=== PATIENT | female | born 1960 | race Caucasian/White ===

== ENCOUNTER 2016-11-14 09:35 | Day surgery (SDC) | payer OTHER ==
[~2016-11-14] VITALS: Ht 165.1 cm; Wt 97.5 kg
[~2016-11-14 09:35] MED LIST: DSS100 PO; IBUP-1152 PO; SYN.15T2 PO; TOR10T PO; TYL325 PO; XVIS2550 PO
[2016-11-14] MEDS ORDERED: Propofol 10 mg/mL 20 mL Inj ONE (09:36)
[2016-11-14 10:12] VITALS: BP 162/86; PULSE 58; RESP 14; O2SAT 98
[2016-11-14] MEDS ORDERED: ASPI-973 PO (10:21)
[2016-11-14] MEDS ORDERED: CHOL10008 PO (10:21)
[2016-11-14] MEDS ORDERED: OMEP20CA11 PO (10:21)
[2016-11-14] MEDS ORDERED: METO25TA6 PO (10:21)
[2016-11-14] MEDS ORDERED: Lactated Ringer's 1,000 ML IV ONE (10:27)
[2016-11-14] MEDS ORDERED: Lactated Ringer's 1,000 ML IV SCH (10:47)
[2016-11-14] MEDS ORDERED: Ondansetron 2 mg/mL 2 mL Inj IVPUSH PRN (10:50)
[2016-11-14] MEDS ORDERED: MetoCLOpramide 5 mg/mL 2 mL Inj IVPUSH PRN (10:50)
[2016-11-14 11:13] VITALS: BP 137/81; PULSE 62; RESP 16; O2SAT 97
--- NOTE | 2016-11-14 11:18 | PCM.ENDEGD ---
EGD Date of Service: Nov 14, 2016 Physician Sree Dan MD Pre Procedure Diagnosis: Dysphagia Post Procedure Dx & Findings: Diffuse gastropathy and gastric polyp Procedure Esophagogastroduodenoscopy PROCEDURE IN DETAIL: After proper sedation, Olympus video endoscope was inserted into patient's mouth and esophagus was successfully intubated. Scope introduced esophagus. Esophagus showed normal shiny whitish mucosa consistent with squamous cell component. Z line was intact at 40 cm from the incisors. Scope further advanced to the stomach. The entire stomach appeared reddish edema with normal folds. Biopsies were obtained. There was a 2-3 cm appears to be an inflammatory polypoid structure. This was biopsied. Cardia fundus body antrum pylorus were all visualized. Retroflexion was done. Stomach was easily inflated and deflatable using air. Scope further advanced to the distal duodenum. Duodenum revealed normal villous structures with normal appearing folds without any mass ulcer erosion. Impression Diffuse gastropathy Most likely inflammatory gastric polyp. Recommendation Follow up in GI clinic Presedation Assessment Risks and Benefits Informed consent was obtained from the patient after all risks and benefits including but not limited to drug reaction, infection, pain, bleeding, perforation, as well as alternatives were discussed. Patient monitoring Continuous pulse oximetry, cardiac monitoring, blood pressure monitoring, IV access, and oxygen at 2L per nasal cannula. Complications There were no periprocedural complications identified. Post Procedure Plan Post Procedure Recommendations 1. Restrict activities today. 2. Resume normal activities in the morning. 3. Resume medications. 4. GERD behavioral modification: - Avoid fatty, acidic, spicy, large meals - Do not lie down after meals - Do not eat or drink anything for at least 2 1/2 hours before going to bed at night - Discontinue tobacco and alcohol - Decrease or avoid caffeine - Avoid chocolate and mints - Decrease weight - Avoid aspirin and non steroidal anti-inflammatory agents (NSAID) such as Aleve, Advil, Mobic, Naproxen, Ibuprofen, etc 5. Add proton pump inhibitor. Take 30 minutes before 1st meal of the day. 6. Patient informed of normal post procedure side effects as bloating, drowsiness, blood streaking in the stool 7. If gastric biopsy reveal H.pylori, continue with appropriate treatment 8. If small bowel biopsy reveals celiac, continue with appropriate treatment 9. Please don't hesitate to call me with any questions Sree Dan MD Nov 14, 2016 11:18
--- NOTE | 2016-11-14 11:27 | PCM.HPANE ---
Patient Data Surgeon Admitting Provider: Attending Provider:Sree Dan MD Primary Care Physician:Helen Burr MD Other Provider:[facility] Anesthesia Reason for Visit Dysphagia Ht/WT & BMI Body Mass Index Allergies Coded Allergies: codeine (Verified Allergy, Severe, HIVES,??ANAPHYLAXIS, 03/30/15) oxycodone (Verified Allergy, Severe, HIVES,??ANAPHYLAXIS, 03/30/15) Past Anesthesia History Anesthesia History: Denies:: Abnormal Airway, Anesthesia Reactions, Difficult Intubation, Fam Anesthesia Reaction, Fam Malignant Hypertherm, Malignant Hyperthermia Diabetes History Hx Diabetes?: No MRSA MRSA: No Medications Blood Thinner: Aspirin Last Dose Blood Thinner: Nov 13, 2016 Home Meds Incl Beta Laura: Yes Date Beta Laura Taken: Nov 14, 2016 Time Beta Laura Taken: 0800 Active Scripts IBUPROFEN-Expunged Drug, Do Not Renew! 800 Mg Ryfxry643 Mg PO Q8 #30 TAKE WITH FOOD Prov:Maira Chacko MD 11/24/12 Reported Medications Omeprazole 20 Mg Capsule.dr20 Mg PO BID Ref 0 11/14/16 Cholecalciferol (Vitamin D3) (Vitamin D3)1,000 Unit Tab.chew1,000 Unit PO DAILY 11/14/16 Aspirin 81 Mg Lvzzag01 Mg PO DAILY Ref 0 11/14/16 Metoprolol Tartrate 25 Mg Snhzaz21 Mg PO BID 30 Days Ref 0 11/14/16 Levothyroxine-Expunged Drug, Do Not Renew! (Synthroid-Expunged Drug, Do Not Renew!)150 Mcg Lpzhja722 Mcg PO DAILY 0.15 MG = 150 MCG 11/15/12 Discontinued Scripts Acetaminphen-Expunged Drug, Do Not Renew! 325 Mg Nwkqjx055 Mg PO Q4-6HP #30 Prov:Maira Chacko MD 11/24/12 Hydroxyzine Sari-Expunged Drug, Do Not Renew! (Vistaril-Expunged Drug, Do Not Renew!)25 Mg Tab25 Mg PO Q4-6HP #30 Ref 1 Prov:Maira Chacko MD 11/24/12 Ketorolac-Expunged Drug, Do Not Renew! 10 Mg Byxtje25 Mg PO Q4-6HP #30 Ref 0 not to exceed 5 days Prov:Maira Chacko MD 11/24/12 Docusate Sod-Expunged Drug, Do Not Renew! 100 Mg Xosojqp855 Mg PO BID #60 Ref 3 Prov:Maira Chacko MD 11/24/12 History History of ENT Problems?: Yes HEENT History: Positive for:: Dysphagia Sinus Problem (HX OF SINUSITIS) Denies:: Abnormal Airway Cataracts Difficult Intubation Glaucoma Hearing Problem TMJ Denture Type: None Teeth Condition: Within Normal Limits Hx of Heart Problems?: Yes Cardiovascular History: Positive for:: Atrial Fibrillation Denies:: AICD Abdominal Aortic Aneurism Cardiac Surgery Chest Pain Congestive Heart Failure Coronary Artery Disease Edema Heart Murmur Hypertension Irregular Heartbeat Pacemaker Peripheral Vascular Rheumatic Fever Thrombophlebitis Valvular Heart Disease Hx of Respiratory Problem?: No Respiratory History: Denies:: Asthma COPD Chest Surgery Cough Dyspnea Emphysema Hemoptysis Oxygen Administration Pneumonia Pulmonary Embolism Tuberculosis Use of C-PAP Machine Use of Inhalers / NEBS Hx Neurologic Problems?: No Neurological History: Denies:: Alzheimer's Disease CVA Dementia Dizziness Headaches Multiple Sclerosis Parkinson's Disease Peripheral Neuropathy Seizures TIA Hx of GI Problems?: Yes Gastrointestinal History: Denies:: Cirrhosis Diverticulitis Gall Bladder Disease Gastroesphageal Reflux Gastrointestinal Bleeding Heartburn Hepatitis Hiatal Hernia Liver Disease Rectal Bleeding Hx of Problems?: Yes Genitourinary History: Denies:: HX of Hemodialysis Kidney Stones Urinary Tract Infection HX of Peritoneal Dialysis: No Female Hx: Denies:: Currently Endometriosis Pelvic Inflammatory Problems with Breasts? Skin History: Denies:: History Skin Disorders? Pressure Ulcers Hx Musculoskeletal Problems?: No Musculoskeletal History: Denies:: Back Injury Degenerative Joint Fibromyalgia Joint Replacement Musculoskeletal Trauma Myasthenia Gravis Osteoarthritis Rheumatoid Arthritis Systemic Lupus Hx of Psycho/Social Problems?: No Psycho Social History: Denies:: Anxiety Bipolar Disorder Hx Depression Suicide Attempt Hx Surgeries?: Yes (HYSTO, LAP HEAVEN, TONSIL, BLADDER SLING) Hx Any Other Health Problems?: No Other History: Positive for:: Hospitalization (CARDIAC 2006) Thyroid Disease (hypothyroid) Denies:: Cancer Endocrine Disease History Blood Transfusions: Denies:: Blood Transfusions Hx Diabetes: No Hx Alcohol Use: NoHx Substance Use: No Smoking Status: Unknown if Ever Smoker Have You Smoked inLast 12 mo: No Stop/Bang Treated for Sleep Apnea?: Yes Do You Have a CPAP Machine?: Yes (COMPLIANT WITH NIGHTLY USE) Risk Assessment Category Category 1A: Patient has history of documented sleep apnea, and HAS NOT received any narcotic, sedative or anesthesia administration during this stay. Category 1B: Patient has history of documented sleep apnea, and HAS received any narcotic , sedative or anesthesia administration during this stay Category 2: Patient has SUSPECTED Obstructive Sleep Apnea, and HAS received any narcotic , sedative or anesthesia administration during this stay. Category 3: Patient has SUSPECTED Obstructive Sleep Apnea and HAS NOT received narcotic, sedative or anesthesia administration during this stay. Category 4: Outpatient in Procedural Areas with known sleep apnea or who screen positive for High Risk via the STOP/BANG questionnaire. Exam Exam Vital Signs Vital Signs Date Time Temp Pulse Resp B/P Pulse Ox O2 Delivery O2 Flow Rate FiO2 11/14/16 10:12 36.5 58 14 162/86 98 Room Air General Appearance: Alert, Oriented X3, Cooperative, No Acute Distress HEENT/AIRWAY: MP 2, Neck Movement (FROM), Mouth Opening (3 FBMO) Lungs: Clear to Auscultation, Normal Air Movement Heart: Exam Unremarkable, Regular Rate/Rhythm, No Murmurs/Rubs/Gallops Additional Information h/o A fib, currently in NSR Plan Impression Patient chart reviewed, patient interviewed and anesthestic plan with risks, benefits, and alternatives discussed, and informed consent obtained. NPO per Anesth. Guidelines: Yes ASA Physical Status: ASA3 Severe Disease (A fib) Anesthetic Plan: MAC Bene/Risks/Altern/Consents: Yes HP Complete Prior to Induction: Yes Ulysses Nixon MD Nov 14, 2016 10:25
--- NOTE | 2016-11-14 11:28 | PCM.ANEP1 ---
Post Anesthesia PACU Phase 1 Assessment Vital Signs Vital Signs Date Time Temp Pulse Resp B/P Pulse Ox O2 Delivery O2 Flow Rate FiO2 11/14/16 11:13 62 16 137/81 97 Room Air 11/14/16 10:12 36.5 58 14 162/86 98 Room Air Anesthetic Administered: MAC Level of Alertness: Awake, talking COUGHLIN's with Equal Strength: Yes Pain: Yes Nausea or Vomiting: No CV Function & Hydration Stable: Yes Airway Device: N/A Oxygen Delivery: Room Air Lungs: Clear to Auscultation, Normal Air Movement Dermatome Level: Full Sensation PACU Phase 2 Assessment Complications: No Follow up Care: N/A Patient Instructions Provided: N/A Ulysses Nixon MD Nov 14, 2016 11:28
[2016-11-14 11:36] VITALS: BP 140/84; PULSE 56; RESP 14; O2SAT 98
--- NOTE | 2016-11-18 11:36 | PATH ---
SURGICAL PATHOLOGY Attending Physician:Sree Dan M.D. CASE STATUS: Signed Out PATIENT NAME: ADRIANNE LOERA PID: [id number] : 1960 DATE COLLECTED:11/14/2016 16:12 SPECIMEN: 1: Gastric, Biopsy 2: Gastric, Biopsy CLINICAL HISTORY: DYSPHASIA 1. DIFFUSED GASTRITIS 2. GASTRIC POLYP BX FINAL DIAGNOSIS: 1.DIFFUSE GASTRITIS: GASTRIC ANTRAL MUCOSA WITH INTESTINAL METAPLASIA AND PANCREATIC ACINAR METAPLASIA. Negative for Helicobacter organisms by immunohistochemical stains. Negative for dysplasia and malignancy. 2.GASTRIC POLYP BIOPSY: REACTIVE GASTROPATHY, ANTRAL MUCOSA. Negative for Helicobacter organisms by immunohistochemical stains. Negative for intestinal metaplasia. Negative for dysplasia and malignancy. ICD10 K29.70 K31.89 GROSS DESCRIPTION: 1. Received in formalin, labeled with the patient' s name and "gastric", are two pieces of hudson, soft tissue measuring 0.3 x 0.2 x 0.1 cm to 0.5 x 0.3 x 0.2 cm. Totally submitted in cassette 1A. 2. Received in formalin, labeled with the patient' s name and "gastric polyp", is one piece of hudson, soft tissue measuring 0.6 x 0.2 x 0.1 cm. Totally submitted in cassette 2A. (:[id number]) MICRO DESCRIPTION: 1. and 2. Sections are of gastric mucosa with features as described in the diagnostic field above. Immunohistochemical stains are performed to rule out the presence of Helicobacter organisms. The patient tissue is stained with monoclonal antibody to Helicobacter pylori (SP48). The positive and negative controls stain appropriately. Result:1. The patient tissue shows no Helicobacter staining. 2. The patient tissue shows no Helicobacter staining. Interpretation: The gastric mucosa is negative for Helicobacter organisms by immunohistochemical stains. This test was developed and its performance characteristics determined by [employer]. It has not been cleared or approved by the [place]. [place]. Food and Drug Administration. The FDA has determined that such clearance or approval is not necessary. This test is used for clinical purposes. It should not be regarded as investigational or for research. ICD-9 CODES: CPT CODES: 1: 27974, 86645 2: 57969, 35482 Electronically Signed Out Angi Nolasco MD [facility] Pathology [facility] [address], [place] [address] Technical component performed at [facility], [address], [place], [address]
== END 2016-11-14 23:59 | disposition home or self-care (01) ==
LOC: END 09:35
PROVIDERS: ATTEND Internal Medicine
DX: K31.9 Disease of stomach and duodenum, unspecified (principal); K31.7 Polyp of stomach and duodenum; R13.10 Dysphagia, unspecified; K21.9 Gastro-esophageal reflux disease without esophagitis; E78.5 Hyperlipidemia, unspecified; I48.91 Unspecified atrial fibrillation; G47.33 Obstructive sleep apnea (adult) (pediatric); E03.9 Hypothyroidism, unspecified; Z90.710 Acquired absence of both cervix and uterus; Z79.82 Long term (current) use of aspirin
CPT/HCPCS: 43239; J7120

== ENCOUNTER → 2017-02-13 | Day surgery (SDC) | payer OTHER ==
[~2017-02-13] VITALS: Ht 162.6 cm; Wt 89.8 kg
[~2017-02-13] MED LIST changes: +ASPI-973 PO; -DSS100 PO; +ESOM20CA28 PO; -IBUP-1152 PO; +LEVO137T24 PO; +Lactated Ringer's 1,000 ML IV ONE; +Lactated Ringer's 1,000 ML IV SCH; +METO50TA3 PO; +MetoCLOpramide 5 mg/mL 2 mL Inj IVPUSH PRN; +Ondansetron 2 mg/mL 2 mL Inj IVPUSH PRN; -SYN.15T2 PO; +TIZA4CAP8 PO; -TOR10T PO; -TYL325 PO; -XVIS2550 PO
[2017-02-13 09:15] VITALS: BP 135/73; PULSE 59; RESP 12; O2SAT 98
--- NOTE | 2017-02-13 09:29 | PCM.HPANE ---
Patient Data Date of Service: Feb 13, 2017 Surgeon Admitting Provider: Attending Provider:Sree Dan MD Primary Care Physician:Helen Burr MD Other Provider:Shant Arita Anesthesia Reason for Visit Dysphagia Ht/WT & BMI Height (Feet): 5 Height (Inches): 4 Weight (Kilograms): 89.81 Body Mass Index 33.00 Allergies Coded Allergies: acetaminophen (Verified Allergy, Intermediate, HIVES, 02/11/17) hydrocodone (Verified Allergy, Intermediate, HIVES, 02/11/17) meperidine (Verified Allergy, Intermediate, HIVES, 02/11/17) morphine (Verified Allergy, Intermediate, HIVES, 02/11/17) Past Anesthesia History Anesthesia History: Denies:: Abnormal Airway, Anesthesia Reactions, Difficult Intubation, Fam Anesthesia Reaction, Fam Malignant Hypertherm, Malignant Hyperthermia Diabetes History Hx Diabetes?: No MRSA MRSA: No Medications Blood Thinner: Aspirin Last Dose Blood Thinner: Jan 30, 2017 Hypertension Medication: Yes Home Meds Incl Beta Laura: Yes Previous Beta Laura Dose >24: Previous Dose <24 Hours Reported Medications Tizanidine 4 Mg Capsule4 Mg PO DAILY 02/11/17 Levothyroxine (Synthroid)137 Mcg Yftwpp631 Mcg PO DAILY Ref 0 02/11/17 Esomeprazole Magnesium (Nexium)20 Mg Capsule.dr20 Mg PO BID Ref 0 02/11/17 Metoprolol Tartrate 50 Mg Jqzbfn19 Mg PO BID 30 Days Ref 0 02/11/17 Aspirin 81 Mg Jzasjq56 Mg PO DAILY Ref 0 02/11/17 Discontinued Reported Medications Omeprazole 20 Mg Capsule.dr20 Mg PO BID Ref 0 11/14/16 Cholecalciferol (Vitamin D3) (Vitamin D3)1,000 Unit Tab.chew1,000 Unit PO DAILY 11/14/16 Aspirin 81 Mg Bxolas56 Mg PO DAILY Ref 0 11/14/16 Metoprolol Tartrate 25 Mg Igrjpa02 Mg PO BID 30 Days Ref 0 11/14/16 Levothyroxine-Expunged Drug, Do Not Renew! (Synthroid-Expunged Drug, Do Not Renew!)150 Mcg Kfltup927 Mcg PO DAILY 0.15 MG = 150 MCG 11/15/12 Discontinued Scripts IBUPROFEN-Expunged Drug, Do Not Renew! 800 Mg Ksiiyr816 Mg PO Q8 #30 TAKE WITH FOOD Prov:Maira Chacko MD 11/24/12 History History of ENT Problems?: Yes HEENT History: Positive for:: Dysphagia (better simce she got on nexium) Sinus Problem (HX OF SINUSITIS) Denies:: Abnormal Airway Cataracts Difficult Intubation Hearing Problem TMJ Denture Type: None Teeth Condition: Within Normal Limits Hx of Heart Problems?: Yes Cardiovascular History: Positive for:: Atrial Fibrillation (resolved) Denies:: AICD Abdominal Aortic Aneurism Cardiac Surgery Chest Pain Congestive Heart Failure Edema Heart Murmur Hypertension Irregular Heartbeat Pacemaker Rheumatic Fever Thrombophlebitis Valvular Heart Disease Hx of Respiratory Problem?: No Respiratory History: Denies:: Asthma COPD Chest Surgery Cough Dyspnea Emphysema Hemoptysis Oxygen Administration Pneumonia Pulmonary Embolism Tuberculosis Use of C-PAP Machine Hx Neurologic Problems?: No Neurological History: Denies:: Alzheimer's Disease CVA Dementia Dizziness Headaches Multiple Sclerosis Parkinson's Disease Seizures Hx of GI Problems?: Yes Hx of Problems?: Yes Genitourinary History: Denies:: HX of Hemodialysis Kidney Stones Urinary Tract Infection HX of Peritoneal Dialysis: No Female Hx: Denies:: Currently Endometriosis Pelvic Inflammatory Problems with Breasts? Skin History: Denies:: History Skin Disorders? Pressure Ulcers Hx Musculoskeletal Problems?: No Musculoskeletal History: Denies:: Back Injury Degenerative Joint Fibromyalgia Joint Replacement Musculoskeletal Trauma Systemic Lupus Hx of Psycho/Social Problems?: No Psycho Social History: Denies:: Anxiety Bipolar Disorder Hx Depression Suicide Attempt Hx Surgeries?: Yes (HYSTO, LAP HEAVEN, TONSIL, BLADDER SLING) Hx Any Other Health Problems?: No Other History: Positive for:: Hospitalization (CARDIAC 2006) Thyroid Disease (hypothyroid) Denies:: Cancer Endocrine Disease History Blood Transfusions: Denies:: Blood Transfusions Hx Diabetes: No Hx Alcohol Use: NoHx Substance Use: No Smoking Status: Unknown if Ever Smoker Have You Smoked inLast 12 mo: No Stop/Bang Treated for Sleep Apnea?: Yes Do You Have a CPAP Machine?: Yes JAJA Category 1: Yes Risk Assessment Category Category 1A: Patient has history of documented sleep apnea, and HAS NOT received any narcotic, sedative or anesthesia administration during this stay. Category 1B: Patient has history of documented sleep apnea, and HAS received any narcotic , sedative or anesthesia administration during this stay Category 2: Patient has SUSPECTED Obstructive Sleep Apnea, and HAS received any narcotic , sedative or anesthesia administration during this stay. Category 3: Patient has SUSPECTED Obstructive Sleep Apnea and HAS NOT received narcotic, sedative or anesthesia administration during this stay. Category 4: Outpatient in Procedural Areas with known sleep apnea or who screen positive for High Risk via the STOP/BANG questionnaire. Exam Exam Vital Signs Vital Signs Date Time Temp Pulse Resp B/P Pulse Ox O2 Delivery O2 Flow Rate FiO2 02/13/17 09:15 59 12 135/73 98 Room Air General Appearance: Alert, Oriented X3, Cooperative HEENT/AIRWAY: MP 3 Lungs: Clear to Auscultation Heart: Exam Unremarkable Plan Impression Patient chart reviewed, patient interviewed and anesthestic plan with risks, benefits, and alternatives discussed, and informed consent obtained. NPO per Anesth. Guidelines: Yes ASA Physical Status: ASA3 Severe Disease Anesthetic Plan: MAC Bene/Risks/Altern/Consents: Yes HP Complete Prior to Induction: Yes Gerardo Ferrara MD Feb 13, 2017 09:29
--- NOTE | 2017-02-13 09:29 | PCM.ANEP1 ---
Post Anesthesia PACU Phase 1 Assessment Vital Signs Vital Signs Date Time Temp Pulse Resp B/P Pulse Ox O2 Delivery O2 Flow Rate FiO2 02/13/17 09:15 59 12 135/73 98 Room Air Anesthetic Administered: MAC Level of Alertness: Sleepy, easy to arouse Pain: No Nausea or Vomiting: No CV Function & Hydration Stable: Yes Airway Device: Oxygen Delivery: Nasal Cannula Lungs: Clear to Auscultation PACU Phase 2 Assessment Patient Instructions Provided: N/A Gerardo Ferrara MD Feb 13, 2017 09:29
--- NOTE | 2017-02-13 10:08 | PCM.ENDEGD ---
EGD Date of Service: Feb 13, 2017 Physician Sree Dan MD Pre Procedure Diagnosis: Reflux dysphagia Post Procedure Dx & Findings: Gastritis inflammatory polyp Procedure Esophagogastroduodenoscopy PROCEDURE IN DETAIL: Sedation provided by anesthesiology After proper sedation, Olympus video endoscope was inserted into patient's mouth and esophagus was successfully intubated. Scope introduced esophagus. Esophagus showed normal shiny whitish mucosa consistent with squamous cell component. Z line was intact at 40 cm from the incisors. Scope further advanced to the stomach. Stomach show mild redness edema atrophy consistent with gastropathy. Biopsies obtained to rule out H. pylori. Bilious material noted in the stomach. Again 2-3 cm inflammatory polyp noted in the antrum. Unchanged. Biopsies obtained at the polyp. However some areas felt hard and taking biopsies. Cardia fundus body antrum pylorus were all visualized. Retroflexion was done. Stomach was easily inflated and deflatable using air. Scope further advanced to the distal duodenum. Duodenum revealed normal villous structures with normal appearing folds without any mass ulcer erosion. Impression Inflammatory polyp noted. Multiple biopsies obtained. During biopsies, some areas felt hard. Gastritis. Biopsies obtained Recommendation Await biopsies. Follow up in GI clinic to discuss whether or not we should proceed with endoscopic ultrasound. Presedation Assessment Risks and Benefits Informed consent was obtained from the patient after all risks and benefits including but not limited to drug reaction, infection, pain, bleeding, perforation, as well as alternatives were discussed. Patient monitoring Continuous pulse oximetry, cardiac monitoring, blood pressure monitoring, IV access, and oxygen at 2L per nasal cannula. Complications There were no periprocedural complications identified. Post Procedure Plan Post Procedure Recommendations 1. Restrict activities today. 2. Resume normal activities in the morning. 3. Resume medications. 4. GERD behavioral modification: - Avoid fatty, acidic, spicy, large meals - Do not lie down after meals - Do not eat or drink anything for at least 2 1/2 hours before going to bed at night - Discontinue tobacco and alcohol - Decrease or avoid caffeine - Avoid chocolate and mints - Decrease weight - Avoid aspirin and non steroidal anti-inflammatory agents (NSAID) such as Aleve, Advil, Mobic, Naproxen, Ibuprofen, etc 5. Add proton pump inhibitor. Take 30 minutes before 1st meal of the day. 6. Patient informed of normal post procedure side effects as bloating, drowsiness, blood streaking in the stool 7. If gastric biopsy reveal H.pylori, continue with appropriate treatment 8. If small bowel biopsy reveals celiac, continue with appropriate treatment 9. Please don't hesitate to call me with any questions Sree Dan MD Feb 13, 2017 10:08
--- NOTE | 2017-02-13 10:10 | PCM.ENDCOL ---
Colonoscopy Date of Service: Feb 13, 2017 Physician Sree Dan MD Pre Procedure Diagnosis: Screening no family or personal history of colon cancer polyp Post Procedure Dx & Findings: Polyps and hemorrhoids Procedure Colonoscopy PROCEDURE IN DETAIL: Sedation provided by anesthesiology Prep adequate Withdrawal time 9 minutes After unremarkable rectal examination the Olympus video colonoscope was inserted patient's anal canal and was advanced to cecum. Landmarks were identified including the ileocecal valve and appendiceal orifice. Scope was withdrawn systematically. Visualized colonic mucosa showed healthy shiny mucosa with normal healthy-appearing vasculature. In the ascending colon transverse colon and the rectum, there were 1 mm polyp each. There were total of 3 polyps 1 in each area. They were all removed completely using cold forceps. In the rectum retroflexion was done which showed hemorrhoids. Anal canal was inspected carefully on the way out and hemorrhoids noted. Impression Polyp 3 status post complete removal Hemorrhoids Recommendation Repeat colonoscopy 3 years Presedation Assessment Risks and Benefits Informed consent was obtained from the patient after all risks and benefits including but not limited to drug reaction, infection, pain, bleeding, perforation, as well as alternatives were discussed. Patient monitoring Continuous pulse oximetry, cardiac monitoring, blood pressure monitoring, IV access, and oxygen at 2L per nasal cannula. Complications There were no periprocedural complications identified. Post Procedure Plan Post Procedure Recommendations 1. Restrict activities today. 2. Resume normal activities in the morning. 3. Resume medications. 4. Patient informed of normal post procedure side effects as bloating, drowsiness, blood streaking in the stool. 5. average risk CRCS. If colon polyps come back as: -Hyperplastic- can repeat colonoscopy in 10 years -Tubular adenoma- repeat colonoscopy in 5 years -Tubulovillous/villous adenoma- repeat colonoscopy in 3 years -If any dysplasia- return to clinic as soon as possible 6. Please don't hesitate to call me with any questions. Sree Dan MD Feb 13, 2017 10:10
[2017-02-13 10:11] VITALS: BP 119/66; PULSE 67; RESP 12; O2SAT 98
--- NOTE | 2017-02-13 10:14 | PCM.ANEP1 ---
Post Anesthesia PACU Phase 1 Assessment Vital Signs Vital Signs Date Time Temp Pulse Resp B/P Pulse Ox O2 Delivery O2 Flow Rate FiO2 02/13/17 10:11 35.9 67 12 119/66 98 Room Air 02/13/17 09:29 Nasal Cannula 02/13/17 09:15 59 12 135/73 98 Room Air Anesthetic Administered: MAC Level of Alertness: Sleepy, easy to arouse Pain: No Nausea or Vomiting: No CV Function & Hydration Stable: Yes Airway Device: Oxygen Delivery: Nasal Cannula Lungs: Clear to Auscultation PACU Phase 2 Assessment Patient Instructions Provided: N/A Gerardo Ferrara MD Feb 13, 2017 10:13
[2017-02-13 10:27] VITALS: BP 111/62; PULSE 58; RESP 12; O2SAT 100
[2017-02-13 10:34] VITALS: BP 116/74; PULSE 50; RESP 12; O2SAT 100
--- NOTE | 2017-02-17 15:53 | PATH ---
SURGICAL PATHOLOGY Attending Physician:Sree Dan M.D. CASE STATUS: Signed Out PATIENT NAME: ADRIANNE LOERA PID: [id number] : 1960 DATE COLLECTED:02/13/2017 19:07 SPECIMEN: 1: Stomach, Polyp, Biopsy 2: Gastric, Biopsy 3: Colon, Polyp 4: Colon, Polyp 5: Rectum, Biopsy CLINICAL HISTORY: 1). GASTRIC POLYP BIOPSY AND RULE OUT H PYLORI 2). GASTRIC BODY BIOPSY AND RULE OUT H PYLORI 3). ASCENDING POLYP X 1 4). TRANSVERSE POLYP X 1 5). RECTAL POLYP FINAL DIAGNOSIS: 1. Stomach, Polyp, Biopsy: Gastric hyperplastic polyp with intestinal metaplasia. Negative for Helicobacter by immunohistochemistry. Negative for dysplasia and malignancy. 2. Stomach, Biopsy: Antral-type mucosa with mild chronic gastritis. Negative for Helicobacter by immunohistochemistry. Negative for intestinal metaplasia. Negative for dysplasia and malignancy. 3. Ascending Colon, Polyp x1, Biopsy: Benign lymphoid aggregate. 4. Transverse Polyp x1, Biopsy: Tubular adenoma. 5. Rectum Polyp, Biopsy: Hyperplastic polyp. ICD10: D12.3 GROSS DESCRIPTION: The specimen is received in five formalin filled containers labeled with the patient's name. 1). The specimen is labeled "gastric polyp" and consists of multiple portions of tissue which aggregate to 0.6 x 0.5 x 0.1 CM. The specimen is entirely submitted in cassette 1A. 2). The specimen is labeled "gastric body" and consists of 2 portions of tissue which aggregate to 0.3 x 0.2 x 0.2 CM. The specimen is entirely submitted in cassette 2A. 3). The specimen is labeled "ascending colon polyp" and consists of a 0.2 x 0.2 x 0.2 CM portion of tissue which is entirely submitted in cassette 3A. 4). The specimen is labeled "transverse polyp" and consists of a 0.3 x 0.2 x 0.2 CM portion of tissue which is entirely submitted in cassette 4A. 5). The specimen is labeled "rectal polyp" and consists of a 0.3 x 0.2 x 0.2 CM portion of tissue which is entirely submitted in cassette 5A. 02/13/2017DC MICRO DESCRIPTION: Immunohistochemical stains were performed on blocks 1 and 2 to evaluate for Helicobacter organisms and are both negative. A control stain showed appropriate reactivity. ICD-9 CODES: CPT CODES: 1: 60869, 76847 2: 46134, 27517 3: 73548 4: 65964 5: 04605 Electronically Signed Out Helen Barriga MD [facility] [address], [place] [address] Technical component performed at [facility], [address], [place], [address]
== END | disposition home or self-care (01) ==
LOC: END 00:10
PROVIDERS: ATTEND Internal Medicine
DX: Z12.11 Encounter for screening for malignant neoplasm of colon (principal); D12.3 Benign neoplasm of transverse colon; K62.1 Rectal polyp; K63.5 Polyp of colon; K64.8 Other hemorrhoids; K29.50 Unspecified chronic gastritis without bleeding; K31.7 Polyp of stomach and duodenum; I10 Essential (primary) hypertension; I48.0 Paroxysmal atrial fibrillation; K21.9 Gastro-esophageal reflux disease without esophagitis; E78.5 Hyperlipidemia, unspecified; E03.9 Hypothyroidism, unspecified; Z79.82 Long term (current) use of aspirin
CPT/HCPCS: 43239; 45380; J7120